=== PATIENT | male | born 1960 | race Caucasian/White ===

== ENCOUNTER 2021-03-01 08:12 | Day surgery (SDC) | payer OTHER ==
[~2021-03-01] VITALS: Ht 188 cm; Wt 156.4 kg
[~2021-03-01 08:12] MED LIST: ATOR10 PO; IBUP800 PO; LEVSOD75 PO; METF500 PO; OMEP20ER PO
[2021-03-01] MEDS ORDERED: IMIQUIMOD1 EACH (09:07)
--- NOTE | 2021-03-01 10:30 | NUR ---
03/01/21 1030 Farrah Schaffer 15 ML NACL USED FOR INJECTING FOR POLYPECTOMIES
== END 2021-03-01 11:17 | disposition home or self-care (01) ==
LOC: ORSCSDS 08:12
PROVIDERS: Internal Medicine Gastroenterology
PROC: 0DBK8ZX Excision of Ascending Colon, Via Natural or Artificial Opening Endoscopic, Diagnostic (ICD-10-PCS; principal; 2021-03-01 09:45)
DX: Z12.11 Encounter for screening for malignant neoplasm of colon (principal); D12.2 Benign neoplasm of ascending colon; K64.8 Other hemorrhoids; K21.9 Gastro-esophageal reflux disease without esophagitis; E11.9 Type 2 diabetes mellitus without complications; E03.9 Hypothyroidism, unspecified; G47.33 Obstructive sleep apnea (adult) (pediatric); E66.01 Morbid (severe) obesity due to excess calories; Z68.41 Body mass index [BMI] 40.0-44.9, adult; Z79.84 Long term (current) use of oral hypoglycemic drugs; Z79.899 Other long term (current) drug therapy
CPT/HCPCS: 82947; 88305; J2704; J7120